=== PATIENT | female | born 1950 | race American Indian/Alaskan Native ===

== ENCOUNTER 2016-06-04 10:23 | Day surgery (SDC) | payer MEDICARE ==
[2016-05-28 09:45] LABS: Basophils % (Auto) 0.4 % (0.0-1.8); Eosinophils % (Auto) 1.5 % (0.0-4.3); Hematocrit 42.2 % (30.3-42.9); Hemoglobin 13.8 gm/dl (10.1-14.3); Mean Corpuscular HGB Conc 33 % (30-34); Mean Corpuscular Hemoglobin 30 pg (28-32); Mean Corpuscular Volume 93 fl (79-97); Platelet Count 203 K/mm3 (140-440); Red Blood Count 4.55 M/mm3 (3.65-5.03); Red Cell Distribution Width 14.1 % (13.2-15.2); White Blood Count 7.2 K/mm3 (4.5-11.0)
--- NOTE | 2016-05-28 09:52 | Anesthesia Consultation ---
Anesthesia Consult and Med Hx Date of service: 05/28/16 - Airway Anesthetic Teeth Evaluation: Poor ROM Head & Neck: Adequate Mental/Hyoid Distance: Adequate Mallampati Class: Class II Intubation Access Assessment: Probably Good - Pulmonary Exam CTA: Yes - Cardiac Exam Cardiac Exam: RRR - Pre-Operative Health Status ASA Pre-Surgery Classification: ASA3 Proposed Anesthetic Plan: General - Pre-Anesthesia Comment Pre-Anesthesia Comments: PENDING CARDIAC CLEARENCE - Pulmonary Hx Smoking: Yes (STOPPED X 3 YRS, 1/2PPD X 5 YRS) - Cardiovascular System Hx Coronary Artery Disease: Yes (Metoporol ) Hx Heart Attack/AMI: Yes (2014, CABG ) Hx Angina: No - Central Nervous System Hx Back Pain: Yes (NECK PAIN R/T Rotator Cuff Tear ) - Other Systems Hx Alcohol Use: Yes (2-3 DRINKS TORSTEN PER DAY) Hx Substance Use: Yes (MARIJUANA 3-4 X PER WEEK.)
[2016-05-28 10:00] LABS: Alanine Aminotransferase 17 units/L (7-56); Albumin 3.8 g/dL (3.9-5); Albumin/Globulin Ratio 1.2 %; Alkaline Phosphatase 89 units/L (35-129); Anion Gap 18 mmol/L; Bilirubin,Total 0.2 mg/dL (0.1-1.2); Blood Urea Nitrogen 14 mg/dL (7-17); Calcium 8.8 mg/dL (8.4-10.2); Carbon Dioxide 23 mmol/L (22-30); Chloride 100.6 mmol/L (98-107); Glucose 107 mg/dL (65-100); Potassium 4.4 mmol/L (3.6-5.0); Sodium 137 mmol/L (137-145)
--- NOTE | 2016-05-28 10:00 | Anesthesia Consultation ---
Anesthesia Consult and Med Hx Date of service: 05/28/16 - Airway Anesthetic Teeth Evaluation: Poor ROM Head & Neck: Adequate Mental/Hyoid Distance: Adequate Mallampati Class: Class II Intubation Access Assessment: Probably Good - Pulmonary Exam CTA: Yes - Cardiac Exam Cardiac Exam: RRR - Pre-Operative Health Status ASA Pre-Surgery Classification: ASA3 Proposed Anesthetic Plan: General Nerve Block: IS - Pre-Anesthesia Comment Pre-Anesthesia Comments: Pending Cardiac Clearence - Pulmonary Hx Smoking: Yes (STOPPED X 3 YRS, 1/2PPD X 5 YRS) - Cardiovascular System Hx Coronary Artery Disease: Yes (Metoporol ) Hx Heart Attack/AMI: Yes (2014, CABG ) Hx Angina: No Hx Percutaneous Transluminal Coronary Angioplasty (PTCA): Yes (2014) - Central Nervous System Hx Back Pain: Yes (NECK PAIN R/T Rotator Tear ) - Other Systems Hx Alcohol Use: Yes (2-3 DRINKS TORSTEN PER DAY) Hx Substance Use: Yes (MARIJUANA 3-4 X PER WEEK.) Hx Cancer: No
--- NOTE | 2016-06-03 14:56 | History and Physical Report ---
History of Present Illness Date of examination: 06/03/16 Date of admission: 06/04/16 Chief complaint: Painful limitation of movement, difficulty reaching overhead left shoulder, several months duration. No improvement with nonoperative management. Subsequent MRI scan confirmed a torn rotator cuff, being admitted for rotator cuff repair. Past History Past Medical History: hypertension, hyperlipidemia Medications and Allergies Allergies Allergy/AdvReac Type Severity Reaction Status Date / Time chocolate flavor Allergy Rash Verified 05/23/16 10:01 Home Medications Medication Instructions Recorded Confirmed Last Taken Type Rosuvastatin (Nf) [Crestor] 20 mg PO QHS #30 tablet 08/22/14 05/23/16 Unknown Rx Aspirin [Adult Low Dose Aspirin EC] 81 mg PO DAILY 05/23/16 05/23/16 Unknown History Metoprolol [Lopressor TAB] 25 mg PO BID 05/23/16 05/23/16 Unknown History Active Meds: Active Medications Famotidine (Pepcid) 20 mg PO PREOP NR Stop: 06/04/16 23:59 Cefazolin Sodium (Ancef/Sterile Water 2 Gm/20 Ml) 2 gm in 20 mls @ 80 mls/hr IV PREOP NR PRN Reason: Protocol Stop: 06/04/16 23:59 Lactated Ringer's (Lactated Ringers) 1,000 mls @ 42 mls/hr IV DIRECT JAMILAH Midazolam HCl (Versed) 2 mg IV PREOP NR Stop: 06/04/16 23:59 Review of Systems All systems: negative Exam - Constitutional Vitals: Temp Pulse Resp BP Pulse Ox 98.3 F 78 20 120/70 05/28/16 09:20 05/28/16 09:20 05/28/16 09:20 05/28/16 09:20 General appearance: Present: no acute distress, well-nourished - EENT Eyes: Present: PERRL ENT: hearing intact, clear oral mucosa - Neck Neck: Present: supple, normal ROM - Respiratory Respiratory effort: normal Respiratory: bilateral: CTA - Cardiovascular Heart Sounds: Present: S1 & S2. Absent: rub, click - Extremities Extremities: pulses symmetrical, No edema, abnormal (Right shoulder with pain and tenderness at the acromion, atrophy of deltoid mild. Weakness with lateral lift off. Active abduction 60-70 passive abduction 120. Forward elevation 120, rotation 60 each. 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
[~2016-06-04 10:23] MED LIST: ANCEF/STERILE WATER 2 GM/20 ML 2 GM/20 ML SYRINGE IV NR; LACTATED RINGERS 1,000 ML IV SCH; PEPCID PO NR; VERSED IV NR
[2016-06-04] MEDS ORDERED: NACL BACTERIOSTATIC INFILTRATI ONE (11:06)
[2016-06-04] MEDS ORDERED: MARCAINE 0.5% INFILTRATI ONE (12:00)
[2016-06-04] MEDS ORDERED: DECADRON IV ONE (12:00)
[2016-06-04] MEDS ORDERED: NEURONTIN PO ONE (12:00)
[2016-06-04] MEDS ORDERED: DIPRIVAN 10 MG/ML IV ONE (12:43)
[2016-06-04] MEDS ORDERED: DILAUDID ONE (12:44)
--- NOTE | 2016-06-04 13:00 | Anesthesia Day of Surgery ---
Anesthesia Day of Surgery - Day of Surgery Patient Examined: Yes Patient H&P Reviewed: Yes Patient is NPO: Yes Beta Blockers: Yes Cardiac Clearance: Yes
[2016-06-04] MEDS ORDERED: DECADRON ONE (13:20)
[2016-06-04] MEDS ORDERED: XYLOCAINE MPF 2% ONE (13:20)
[2016-06-04] MEDS ORDERED: ePHEDrine SULFATE ONE (13:25)
[2016-06-04] MEDS ORDERED: NEOSPORIN GU IR ONE (13:35)
[2016-06-04] MEDS ORDERED: NACL 0.9% IR ONE (13:35)
[2016-06-04] MEDS ORDERED: ZOFRAN ONE (13:46)
--- NOTE | 2016-06-04 13:51 | Procedure Note ---
Date of procedure: 06/04/16 Pre-op diagnosis: rotator cuf tear left shoulder Post-op diagnosis: same Procedure: Rotator cuff repair Anesthesia: SELIN, regional Surgeon: JULIO C LIZ Estimated blood loss: minimal Condition: stable Disposition: PACU
--- NOTE | 2016-06-04 13:54 | Discharge Summary ---
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: Chronic Core Measure Documentation - Palliative Care Palliative Care/ Comfort Measures: Not Applicable - Core Measures Any of the following diagnoses?: none Exam - Constitutional Vitals: Temp Pulse Resp BP Pulse Ox 98.7 F 65 20 136/71 99 06/04/16 12:17 06/04/16 12:17 06/04/16 12:17 06/04/16 12:17 06/04/16 12:17 Plan Activity: advance as tolerated, no driving until cleared by PCP Diet: regular Wound: per your surgeon's advice Durable Medical Equipment Needed Upon Discharge: other (Shoulder immobiliser) Follow up with: CORNELIO DAUGHERTY MD [Primary Care Provider] - 7 Days JULIO C LIZ MD [Staff Physician] - 7 Days
[2016-06-04] MEDS ORDERED: NACL P/F VIAL (10 ML) 10 ML ONE (14:09)
--- NOTE | 2016-06-04 14:55 | Operative Report ---
PREOPERATIVE DIAGNOSIS: Left rotator cuff tear. POSTOPERATIVE DIAGNOSIS: Left rotator cuff tear. OPERATIVE PROCEDURE: Open repair, rotator cuff, left shoulder with acromioplasty. SURGEON: Lan Perales MD PIPE STRAIGHTENER: Mahnaz Diaz CSA. ANESTHESIA: Regional block with general sedation. BLOOD LOSS: Minimal. DESCRIPTION OF PROCEDURE: The patient was taken to the surgery suite, satisfactory analgesia obtained with regional block supplemented with general sedation. The patient was positioned in the beach chair position. Procedure, surgical site, and the patient was confirmed. Incision was made over the lateral aspect of the acromion extending to the coracoid process, deepened to the thickness of skin and subcutaneous. Deltoid fibers were split at the junction of the anterior and lateral fibers, partially elevated from the tip of the acromion. Marked impingement was noticed. Acromionectomy was carried out by excising the anterior inferior third of the acromion and further decompression carried out using a dental bur. Acromioplasty was completed. Subacromial bursa was then partially excised and the rotator cuff tear over the supraspinatus tendon was visualized and approximated and appeared linear, approximately 0.5 cm long and this was approximated using 0 Vicryl sutures. Shoulder was put through range of motion, no impingement was noticed, repair appeared satisfactory. Wound was irrigated, closed in layers in the standard fashion. Shoulder was immobilized in shoulder immobilizer. be discharged when discharge criteria are met. HOMEGOING INSTRUCTIONS: Local ice packs, analgesics, semisitting position. Follow up at the office in 7-10 days. JOB# [id number] EMANUELN/NAVNEET
--- NOTE | 2016-06-04 14:59 | Post Anesthesia Evaluation ---
- Post Anesthesia Evaluation Patient Participated: Yes Airway Patent: Yes Stable Respiratory Function: Yes Nausea/Vomiting: No Temp > 96.8F: Yes Pain Manageable: Yes Adequeate Hydration: Yes Anesthesia Complications: No
[2016-06-04 16:01] VITALS: BP 125/77
--- NOTE | 2016-06-05 01:19 | Admit Criteria Form ---
Admission Criteria Documentation: AMBULATORY SURGERY EXCEPTION CRITERIA Ambulatory Surgery Exception Criteria ( Place 'X' for any and all applicable criteria): Surgery or procedure performed on ambulatory basis may require inpatient stay for[A] ANY ONE of the following(1)(2)(3)(4)(5)(6)(7)(8)(9): [X] I. A preoperative situation, condition, or finding that warrants inpatient stay as indicated by ANY ONE of the following: [] a) Inpatient care needed because of severity of a disease or condition rather than the surgery (eg, severe cardiac or respiratory disease, severe infection) (15) (16 ) (17) (18) [] b) Emergent procedure (eg, angioplasty for acute ischemia)(19) [] c) Complex surgical approach or situation as indicated by ANY ONE of the following(3): [] i) Open approach needed instead of usual endoscopic, transcatheter, or other less invasive procedure [] ii) Difficult approach because of previous operation [] iii) Airway monitoring required after open neck procedures(20)(21) [] iv) Large mass requiring unusually extensive dissection [] v) Additional complicating feature requiring inpatient care (eg, drain management)(22(23): [X] d) Major surgery in a pt with high anesthetic risk as indicated by ANY ONE of the following (2)(3)(5)(7)(8): [X] i) ASA risk class III or higher (severe systemic disease impairing function) [D] [] ii) Advanced age (eg, older than 85 years)(14)(24) [] iii) Symptomatic heart failure(25) [] iv) Symptomatic asthma or COPD(8)(21) [] v) Morbid obesity with hemodynamic or respiratory problems(20)( 21)(26)(27) [] vi) Obstructive sleep apnea(20)(21) [] vii) Former premature infants who are younger than 60 weeks [] viii) High risk for severe postoperative abnormalities (eg, severe postoperative hypocalcemia after parathyroidectomy for severe hyperparathyroidism)(27)( 28) [] ix) Unstable angina(25) [] e) Drug-related risk requiring inpatient stay as indicated by ANY ONE of the following(5)(10)(14)(32)(33) [] i) Procedure requires discontinuing drugs or other therapy (eg , antiarrhythmic medication, antiseizure medication), which necessitates inpatient observation or treatment.(18)(31) [] ii) Major surgery and high risk drug use as indicated by ANY ONE of the following: [] 1) Active abuse of cocaine or similar drug [] 2) Monoamine oxidase inhibitor use [] 3) Other drug identified as posing risk [] f) Inadequate outpatient care situation as indicated by ANY ONE of the following(5)(10)(14)(32)(33) [] i) Patient lives remote from medical facility and procedure has urgent complication potential, and temporary nearby residence cannot be arranged [] ii) Patient will have postprocedure incapacitation and inadequate assistance at home, or alternative level of care cannot be arranged. [] iii) Patient will have long general anesthesia or procedure side effect resolution time, and competent person to stay with patient on first postoperative night at home or alternative level of care cannot be arranged. []iv) Other inadequate outpatient situation that cannot be handled by other means [] II. A perioperative event, condition, or finding that warrants inpatient stay as indicated by ANY ONE of the following (1)(2)(3): [] a) Inadequate physiologic recovery: cardiovascular, respiratory, or hemodynamic status not normal or near preoperative baseline(18) [] b) Hemodynamic instability [] c) Patient not alert with near normal or baseline mental status [] d) Temperature not normal or as expected and not appropriate for outpatient treatment of condition [] e) Ambulatory or appropriate activity level status not yet achieved post procedure [E](34)(35)(36) [] f) Operative site not appropriate (eg, unexpected or excessive drainage or bleeding) [] g) Postoperative effects not resolved or adequately managed (eg, significant pain or vomiting not appropriate for outpatient or next level of care)(10)(12) [] h) Complicating features requiring inpatient care as indicated by ANY ONE of the following(37): [] i) Severe complications of procedure (eg, bowel injury, airway compromise, vascular injury,severe hemorrhage) [] ii) Extensive (eg, dissection far beyond usual scope of procedure ) or prolonged (eg, 120 minutes beyond usual) surgery needed requiring inpatient postoperative care [] iii) Conversion to an open or complex procedure that requires inpatient care (eg, open vs laparoscopic cholecystectomy, abdominal vs vaginal hysterectomy)(38) [] iv) Comorbid condition or test result identified during or post procedure that requires inpatient care (7) [] v) Malignant hyperthermia(30) [] vi) Other complicating feature requiring inpatient care(22)(23) Inpatient stay may be needed until ALL of the following are present (1)(2)(3)(4) (5)(6)(10)(14)(33)(40): []a) Physiologic recovery: cardiovascular, respiratory, and hemodynamic status normal or near preoperative baseline []b) Hemodynamic stability []c) Patient alert, with near normal or baseline mental status []d) Temperature appropriate: patient afebrile or temperature appropriate for outpt treatment of condition []e) Activity level appropriate: ambulatory or appropriate activity level post procedure []f) Operative site appropriate as indicated by ALL of the following: []i) Site dry or with expected drainage []ii) Any blood noted is as expected for procedure. []g) Postoperative effects resolved or managed as indicated by ALL of the following: []i) Pain management appropriate for outpatient (or next level of) care(10) []ii) Minimal nausea and vomiting: if present, successfully treated with oral medication(12) []iii) Headache, dizziness, or drowsiness (if present) are mild. []h) Voiding status acceptable as indicated by ANY ONE of the following: []i) Voiding spontaneously []ii) No voiding but instructions given for follow-up in 6 to 8 hours []iii) Urinary catheter in place, and instructions given for follow-up []i) Complicating features requiring inpatient care manageable at a lower level of care(37) []j) Comorbid conditions manageable at a lower level of care(37) The original [employer] content created by [employer] has been revised. The portions of the content which have been revised are identified through the use of italic text or in bold, and The [facility] [employer] has neither reviewed nor approved the modified material. All other unmodified content is copyright [employer]. Please see references footnoted in the original [employer] edition 2016 Admission Criteria Met: Yes
== END 2016-06-04 15:55 | disposition home or self-care (01) ==
LOC: OR 10:23
PROVIDERS: ATTEND Orthopaedic Surgery
DX: S46.012A Strain of muscle(s) and tendon(s) of the rotator cuff of left shoulder, initial encounter (principal); I10 Essential (primary) hypertension; E78.5 Hyperlipidemia, unspecified; F12.90 Cannabis use, unspecified, uncomplicated; I25.10 Atherosclerotic heart disease of native coronary artery without angina pectoris; I25.2 Old myocardial infarction; Z87.891 Personal history of nicotine dependence; Z95.1 Presence of aortocoronary bypass graft; Z95.5 Presence of coronary angioplasty implant and graft; Z72.89 Other problems related to lifestyle; X58.XXXA Exposure to other specified factors, initial encounter; Y93.9 Activity, unspecified; Y92.9 Unspecified place or not applicable; Y99.9 Unspecified external cause status
CPT/HCPCS: 23130; 23410; 36415; 80053; 85025; 88304; 88311; J0690; J1100; J1170; J2250; J2405; J2704; J7120; L1830

== ENCOUNTER 2019-04-30 13:57 | Emergency (ER) | payer MEDICARE ==
--- NOTE | 2019-04-30 14:17 | Event Note ---
ED Screening Note Date of service: 04/30/19 Time: 14:16 ED Screening Note: Pt complains of right sided chest pain x today hx of quadruple bypass This initial assessment/diagnostic orders/clinical plan/treatment(s) is/are subject to change based on patients health status, clinical progression and re- assessment by fellow clinical providers in the ED. Further treatment and workup at subsequent clinical providers discretion. Patient/guardian urged not to elope from the ED as their condition may be serious if not clinically assessed and managed. Initial orders include: MAIN labs ekg CXR
[2019-04-30] MEDS ORDERED: ASPIRIN 81 MG TAB CHEW PO ONE (14:18)
--- NOTE | 2019-04-30 15:20 | XRay Report ---
CHEST 1 VIEW INDICATION / CLINICAL INFORMATION: Chest Pain. COMPARISON: 08/19/2014 FINDINGS: SUPPORT DEVICES: None. HEART / MEDIASTINUM: No significant abnormality. LUNGS / PLEURA: No significant pulmonary or pleural abnormality. No pneumothorax. ADDITIONAL FINDINGS: No significant additional findings. IMPRESSION: 1. No significant change Signer Name: Yury Carr MD Signed: 04/30/2019 3:16 PM Workstation Name: [id number]
[2019-04-30 15:27] LABS: Basophils % (Auto) 0.6 % (0.0-1.8); Eosinophils # (Auto) 0.1 K/mm3 (0.0-0.4); Eosinophils % (Auto) 1.1 % (0.0-4.3); Hematocrit 41.5 % (30.3-42.9); Lymphocytes # (Auto) 1.4 K/mm3 (1.2-5.4); Lymphocytes % (Auto) 18.9 % (13.4-35.0); Mean Corpuscular HGB Conc 34 % (30-34); Mean Corpuscular Volume 93 fl (79-97); Monocytes # (Auto) 0.7 K/mm3 (0.0-0.8); Monocytes % (Auto) 9.4 % (0.0-7.3); Platelet Count 219 K/mm3 (140-440); Red Blood Count 4.45 M/mm3 (3.65-5.03); Red Cell Distribution Width 14.6 % (13.2-15.2)
[2019-04-30 15:53] LABS: Alanine Aminotransferase 16 units/L (7-56); Albumin 3.9 g/dL (3.9-5); BUN/Creatinine Ratio 19; Blood Urea Nitrogen 13 mg/dL (7-17); Calcium 9.6 mg/dL (8.4-10.2); Hemolysis Index 65
--- NOTE | 2019-04-30 16:09 | Emergency Department Report ---
ED Chest Pain HPI - General Chief Complaint: Chest Pain Stated Complaint: CHEST PAIN Time Seen by Provider: 04/30/19 14:16 Source: patient Mode of arrival: Ambulatory Limitations: No Limitations - History of Present Illness Initial Comments: 69-year-old female with history of CAD with CABG and stents, presents to ED with complaint of chest pain. Patient states pain is right-sided, it feels like a pulling sensation. The pain is worse with movement of torso. Patient initially experienced the pain when going from laying to sitting position this morning. Patient states pain is nonradiating. She denies any nausea, vomiting, shortness of breath, leg pain or swelling. 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 Cardiology: Eulalio RANDLE Complaint: chest pain -: This morning Onset: awoke with symptoms Pain Location: right chest Pain Radiation: none Severity: mild Severity scale (0 -10): 6 Quality: other ("pulling") Consistency: intermittent Improves With: remaining still Worsens With: palpation, movement re: denies: nausea, vomting, diaphoresis, dyspnea Other Symptoms: denies: cough, fever, leg swelling - Related Data Home Medications Medication Instructions Recorded Confirmed Last Taken Aspirin [Adult Low Dose Aspirin EC] 81 mg PO DAILY 05/23/16 06/04/16 05/28/16 Metoprolol [Lopressor TAB] 25 mg PO BID 05/23/16 06/04/16 06/03/16 Previous Rx's Medication Instructions Recorded Last Taken Type Rosuvastatin (Nf) [Crestor] 20 mg PO QHS #30 tablet 08/22/14 06/03/16 Rx Naproxen [Naprosyn] 500 mg PO BID #20 tablet 04/30/19 Unknown Rx methOCARBAMOL [Robaxin TAB] 500 mg PO Q8HR PRN #20 tablet 04/30/19 Unknown Rx Allergies Allergy/AdvReac Type Severity Reaction Status Date / Time chocolate flavor Allergy Rash Verified 05/23/16 10:01 Heart Score - HEART Score History: Slightly suspicious EKG: Non-specific Age: > 65 Risk factors: > 3 risk factors or hx of atherosclerotic disease Troponin: < normal limit HEART Score: 5 ED Review of Systems ROS: Stated complaint: CHEST PAIN Other details as noted in HPI Comment: All other systems reviewed and negative Constitutional: denies: chills, fever Respiratory: denies: cough, shortness of breath Cardiovascular: chest pain Gastrointestinal: denies: nausea, vomiting Musculoskeletal: other (denies leg pain and swelling) ED Past Medical Hx - Past Medical History Previous Medical History?: Yes Hx Hypertension: No (ON METOPROLOL FOR HEART DISEASE) Hx Heart Attack/AMI: Yes (2014, CABG ) - Surgical History Past Surgical History?: Yes Hx Open Heart Surgery: Yes (CABG 2014) Additional Surgical History: Knee - Social History Smoking Status: Current Every Day Smoker - Medications Home Medications: Home Medications Medication Instructions Recorded Confirmed Last Taken Type Rosuvastatin (Nf) [Crestor] 20 mg PO QHS #30 tablet 08/22/14 06/04/16 06/03/16 Rx Aspirin [Adult Low Dose Aspirin EC] 81 mg PO DAILY 05/23/16 06/04/16 05/28/16 History Metoprolol [Lopressor TAB] 25 mg PO BID 05/23/16 06/04/16 06/03/16 History Naproxen [Naprosyn] 500 mg PO BID #20 tablet 04/30/19 Unknown Rx methOCARBAMOL [Robaxin TAB] 500 mg PO Q8HR PRN #20 tablet 04/30/19 Unknown Rx ED Physical Exam - General Limitations: No Limitations General appearance: alert, in no apparent distress - Head Head exam: Present: atraumatic, normocephalic - Eye Eye exam: Present: normal appearance, PERRL, EOMI - ENT ENT exam: Present: mucous membranes moist - Neck Neck exam: Present: normal inspection - Respiratory Respiratory exam: Present: normal lung sounds bilaterally, chest wall tenderness (right anterior chest wall). Absent: respiratory distress - Cardiovascular Cardiovascular Exam: Present: regular rate, normal rhythm - GI/Abdominal GI/Abdominal exam: Present: soft. Absent: distended, tenderness - Extremities Exam Extremities exam: Present: normal inspection - Neurological Exam Neurological exam: Present: alert, oriented X3 - Psychiatric Psychiatric exam: Present: normal affect, normal mood - Skin Skin exam: Present: warm, dry, intact, normal color ED Course Vital Signs 04/30/19 04/30/19 04/30/19 14:03 15:00 16:00 Temperature 98.6 F Pulse Rate 71 70 70 Respiratory 16 21 21 Rate Blood Pressure 142/70 Blood Pressure 150/81 162/112 [Left] O2 Sat by Pulse 99 98 98 Oximetry ED Medical Decision Making - Lab Data Result diagrams: 04/30/19 15:10 04/30/19 15:10 - EKG Data -: EKG Interpreted by Me EKG shows normal: sinus rhythm, axis, intervals, QRS complexes Rate: normal - EKG Data Interpretation: nonspecific ST-T wave dave - Radiology Data Radiology results: report reviewed, image reviewed - Medical Decision Making Pt w/ reproducible, right-sided, chest wall pain. EKG shows no ST elevations. Troponin is negative x 2. CXR normal. Lungs clear. Pt in no resp distress, O2 sats normal. BP slightly elevated. Chest pain worse w/ palpation, movement of torso and deep breath. Pt comfortable, will be discharged at this time. Outpt f/u advised. Return precautions given. - Differential Diagnosis costochondritis, pneumonia, ACS Critical care attestation.: If time is entered above; I have spent that time in minutes in the direct care of this critically ill patient, excluding procedure time. ED Disposition Clinical Impression: Chest wall pain Disposition: TO HOME OR SELFCARE Is pt being admited?: No Condition: Stable Instructions: Chest Pain (ED), Costochondritis (ED) Prescriptions: Naproxen [Naprosyn] 500 mg PO BID #20 tablet methOCARBAMOL [Robaxin TAB] 500 mg PO Q8HR PRN #20 tablet PRN Reason: Muscle Spasm Referrals: SHAH MD [Other] - 3-5 Days Time of Disposition: 18:44
[2019-04-30 16:18] VITALS: BP 162/112
== END 2019-04-30 19:00 | disposition home or self-care (01) ==
LOC: ED 13:57
DX: R07.89 Other chest pain (principal); I25.2 Old myocardial infarction; F17.200 Nicotine dependence, unspecified, uncomplicated; Z95.1 Presence of aortocoronary bypass graft; Z79.899 Other long term (current) drug therapy; Z91.018 Allergy to other foods
CPT/HCPCS: 36415; 71045; 80053; 83880; 84484; 85025; 93005; 93010

== ENCOUNTER 2020-03-18 15:00 | Emergency (ER) | payer MEDICARE ==
[2020-03-18 15:35] VITALS: BP 178/95
--- NOTE | 2020-03-18 16:06 | Emergency Department Report ---
ED Extremity Problem HPI - General Chief complaint: Extremity Injury, Lower Stated complaint: RT KNEE EXTREME PAIN Time Seen by Provider: 03/18/20 15:56 Source: patient Mode of arrival: Ambulatory Limitations: Physical Limitation - History of Present Illness Initial comments: Patient is a 70-year-old female who presents emergency room complaints of right knee pain that began 2 days ago. She denies any fall or injury. She states that she has pain with flexing the knee. She denies any numbness or weakness. She denies ever injuring her right knee in the past. She states that she did have surgery on her left knee in 1995. She denies any knee swelling, leg swelling, pain down her leg, redness, increased warmth. She has a past medical history of CABG 7 years ago and CHF. No medication allergies. - Related Data Home Medications Medication Instructions Recorded Confirmed Last Taken Aspirin [Adult Low Dose Aspirin EC] 81 mg PO DAILY 05/23/16 06/04/16 05/28/16 Metoprolol [Lopressor TAB] 25 mg PO BID 05/23/16 06/04/16 06/03/16 Previous Rx's Medication Instructions Recorded Last Taken Type Rosuvastatin (Nf) [Crestor] 20 mg PO QHS #30 tablet 08/22/14 06/03/16 Rx Naproxen [Naprosyn] 500 mg PO BID #20 tablet 04/30/19 Unknown Rx methOCARBAMOL [Robaxin TAB] 500 mg PO Q8HR PRN #20 tablet 04/30/19 Unknown Rx Meloxicam [Mobic] 7.5 mg PO QDAY #15 tablet 03/18/20 Unknown Rx Allergies Allergy/AdvReac Type Severity Reaction Status Date / Time chocolate flavor Allergy Rash Verified 05/23/16 10:01 ED Review of Systems ROS: Stated complaint: RT KNEE EXTREME PAIN Other details as noted in HPI Comment: All other systems reviewed and negative ED Past Medical Hx - Past Medical History Previous Medical History?: Yes Hx Hypertension: No (ON METOPROLOL FOR HEART DISEASE) Hx Heart Attack/AMI: Yes (2014, CABG ) - Surgical History Past Surgical History?: Yes Hx Open Heart Surgery: Yes (CABG 2014) Additional Surgical History: Knee - Social History Smoking Status: Never Smoker Substance Use Type: Alcohol - Medications Home Medications: Home Medications Medication Instructions Recorded Confirmed Last Taken Type Rosuvastatin (Nf) [Crestor] 20 mg PO QHS #30 tablet 08/22/14 06/04/16 06/03/16 Rx Aspirin [Adult Low Dose Aspirin EC] 81 mg PO DAILY 05/23/16 06/04/16 05/28/16 History Metoprolol [Lopressor TAB] 25 mg PO BID 05/23/16 06/04/16 06/03/16 History Naproxen [Naprosyn] 500 mg PO BID #20 tablet 04/30/19 Unknown Rx methOCARBAMOL [Robaxin TAB] 500 mg PO Q8HR PRN #20 tablet 04/30/19 Unknown Rx Meloxicam [Mobic] 7.5 mg PO QDAY #15 tablet 03/18/20 Unknown Rx ED Physical Exam - General Limitations: Physical Limitation General appearance: alert, in no apparent distress - Head Head exam: Present: atraumatic, normocephalic - Eye Eye exam: Present: normal appearance - ENT ENT exam: Present: mucous membranes moist - Respiratory Respiratory exam: Absent: respiratory distress, accessory muscle use - Extremities Exam Extremities exam: Present: other (mild right anterior knee ttp over the tibial tuberosity, FROM of the RLE, no obvious joint laxity, no edema, no erythema, no increased warmth, no leg edema, no calf ttp, no skin changes, neurovascularly intact) - Neurological Exam Neurological exam: Present: alert, oriented X3 - Psychiatric Psychiatric exam: Present: normal affect, normal mood - Skin Skin exam: Present: warm, dry, intact ED Course Vital Signs 03/18/20 03/18/20 15:32 17:17 Temperature 98.4 F Pulse Rate 73 Respiratory 20 20 Rate Blood Pressure 178/95 O2 Sat by Pulse 96 Oximetry ED Medical Decision Making - Radiology Data Radiology results: report reviewed Ordering Physician: CHON SOLOMON Date of Service: 03/18/20 Procedure(s): XR knee 3V RT Accession Number(s): [id number] cc: CHON SOLOMON Fluoro Time In Minutes: RIGHT KNEE 3 VIEW(S) INDICATION / CLINICAL INFORMATION: right knee pain COMPARISON: None available. FINDINGS: BONES / JOINT(S): No acute fracture or subluxation. No significant arthritis. SOFT TISSUES: Extensive vascular calcifications femoral, popliteal and calf arteries ADDITIONAL FINDINGS: None. Signer Name: Doroteo Fitch MD Signed: 03/18/2020 4:28 PM Workstation Name: [id number] Transcribed By: TL Dictated By: Doroteo Fitch MD Electronically Authenticated By: Doroteo Fitch MD Signed Date/Time: 03/18/201627 DD/ 26 TD/TT: - Medical Decision Making Patient is a 70-year-old female who presents emergency room complaints of right knee pain that began 2 days ago. She denies any fall or injury. She states that she has pain with flexing the knee. She denies any numbness or weakness. She denies ever injuring her right knee in the past. She states that she did have surgery on her left knee in 1995. She denies any knee swelling, leg swelling, pain down her leg, redness, increased warmth. She has a past medical history of CABG 7 years ago and CHF. No medication allergies. VSS. on exam: mild right anterior knee ttp over the tibial tuberosity, FROM of the RLE, no obvious joint laxity, no edema, no erythema, no increased warmth, no leg edema, no calf ttp, no skin changes, neurovascularly intact. XR right knee: BONES / JOINT(S): No acute fracture or subluxation. No significant arthritis. SOFT TISSUES: Extensive vascular calcifications femoral, popliteal and calf arteries ADDITIONAL FINDINGS: None. Patient has no clinical signs or symptoms of DVT, septic joint, gout. She has no clinical signs or symptoms of acute arterial occlusion. Discussed x-ray findings with patient and discussed the importance of vascular and orthopedic follow-up, patient verbalized understanding. Patient given tramadol while in the emergency department as she did not drive and symptoms improved. Patient given prescription for Mobic. Advised patient Please take medication as prescribed as needed. May use ice for 15 minutes at a time, rest, elevation of the leg. Follow-up with orthopedic doctor. Follow-up with a vascular doctor. Return to emergency room for any new or worsening symptoms. - Differential Diagnosis Arthritis, tendinitis, strain, sprain, gout, septic joint, Torres's cyst Critical care attestation.: If time is entered above; I have spent that time in minutes in the direct care of this critically ill patient, excluding procedure time. ED Disposition Clinical Impression: PVD (peripheral vascular disease) Right knee pain Qualifiers: Chronicity: acute Qualified Code(s): M25.561 - Pain in right knee Disposition: TO HOME OR SELFCARE Is pt being admited?: No Does the pt Need Aspirin: No Condition: Stable Instructions: Acute Knee Pain, Adult, Peripheral Vascular Disease Additional Instructions: Please take medication as prescribed as needed. May use ice for 15 minutes at a time, rest, elevation of the leg. Follow-up with orthopedic doctor. Follow-up with a vascular doctor. Return to emergency room for any new or worsening symptoms. Prescriptions: Meloxicam [Mobic] 7.5 mg PO QDAY #15 tablet Referrals: KAILEE NEIL MD [Staff Physician] - 2-3 Days [facility] [Provider Group] - 2-3 Days [facility] [place] [Provider Group] - 2-3 Days Time of Disposition: 16:52 Print Language: LUXEMBOURGER
--- NOTE | 2020-03-18 16:32 | XRay Report ---
RIGHT KNEE 3 VIEW(S) INDICATION / CLINICAL INFORMATION: right knee pain COMPARISON: None available. FINDINGS: BONES / JOINT(S): No acute fracture or subluxation. No significant arthritis. SOFT TISSUES: Extensive vascular calcifications femoral, popliteal and calf arteries ADDITIONAL FINDINGS: None. Signer Name: Doroteo Fitch MD Signed: 03/18/2020 4:28 PM Workstation Name: [id number]
[2020-03-18] MEDS: traMADol 50 MG TAB PO ONE ×2 (17:08→17:17)
== END 2020-03-18 17:58 | disposition home or self-care (01) ==
LOC: ED 15:00
DX: I73.9 Peripheral vascular disease, unspecified (principal); M25.561 Pain in right knee; I25.2 Old myocardial infarction; I10 Essential (primary) hypertension; Z98.890 Other specified postprocedural states; Z79.899 Other long term (current) drug therapy; Z88.8 Allergy status to other drugs, medicaments and biological substances